=== PATIENT | female | born 1995 | race Caucasian/White ===

== ENCOUNTER 2017-11-20 19:48 | Emergency (ER) | payer OTHER ==
[~2017-11-20] VITALS: Ht 160 cm; Wt 86.4 kg
[~2017-11-20 19:48] MED LIST: APRESOLINE 25MG25 MG PO; AVIANE 0.02 MG-1 TAB PO; KLONOPIN 0.5MG0.5 MG PO; PRILOSEC 20MG20 MG PO; ZOLOFT 100MG100 MG PO
[2017-11-20 19:54] VITALS: BP 154/91; TEMP 98.1
[2017-11-20 20:33] LABS: COLLECTION METHOD CLEAN CATCH
[2017-11-20 20:49] LABS: BASO % 0.2 % (0.0-2.0); EOS # 0.1 (0.0-0.7); EOS % 0.5 % (0-4.0); GRAN # 8.9 (1.4-6.5); HEMATOCRIT 45.5 % (37.0-47.0); HEMOGLOBIN 15.4 g/dl (12.5-16.0); LYMPH # 3.4 (1.2-3.4); LYMPH % 25.8 % (20.0-51.0); MEAN CELL VOLUME 88 fl (80.0-100.0); MEAN CORPUSCULAR HEMOGLOBIN 30 pg (27.0-31.0); MEAN CORPUSCULAR HGB CONC 34 g/dl (33.0-37.0); MEAN PLATELET VOLUME 10.4 fl (7.4-10.4); MONO # 0.7 (0.1-0.6); MONO % 5.2 % (1.7-9.3); PLATELET COUNT 227 K/mm3 (130-400); RED BLOOD COUNT 5.17 M/mm3 (4.10-5.30); REDCELL DISTRIBUTION WIDTH-CV 12.3 % (11.5-14.5)
[2017-11-20 21:02] LABS: BILIRUBIN,TOTAL 0.6 mg/dL (0.0-1.0); CALCIUM 9.7 mg/dL (8.4-10.2); CREATININE, serum 0.72 mg/dL (0.52-1.25); POTASSIUM 3.8 mmol/L (3.4-5.0)
[2017-11-20 21:58] LABS: PH 6 (5-8); URINE APPEARANCE Clear; URINE BILIRUBIN Negative (NEGATIVE); URINE BLOOD Negative (NEGATIVE); URINE COLOR Yellow; URINE GLUCOSE Negative (NEGATIVE); URINE KETONE Negative (NEGATIVE); URINE LEUKOCYTE ESTERASE Negative (NEGATIVE); URINE NITRATE Negative (NEGATIVE); URINE PROTEIN(semi-quant) Negative (NEGATIVE)
[2017-11-20 22:02] LABS: URINE BACTERIA Rare /hpf; URINE RBC 0-2 /hpf; URINE WBC 0-2 /hpf
[2017-11-20] MEDS ORDERED: ZOFRAN 4MG T4 MG/TAB PO (22:26)
[2017-11-20 22:40] VITALS: PULSE 88
== END 2017-11-20 22:41 | disposition home or self-care (01) ==
LOC: COL.ER 19:48
PROVIDERS: Emergency Medicine
DX: S06.0X9A Concussion with loss of consciousness of unspecified duration, initial encounter (principal); S60.222A Contusion of left hand, initial encounter; S00.03XA Contusion of scalp, initial encounter; S00.91XA Abrasion of unspecified part of head, initial encounter; R10.30 Lower abdominal pain, unspecified; Z23 Encounter for immunization; V47.5XXA Car driver injured in collision with fixed or stationary object in traffic accident, initial encounter; Y92.410 Unspecified street and highway as the place of occurrence of the external cause
CPT/HCPCS: Q9967